=== PATIENT | female | born 1925 | race Caucasian/White ===

== ENCOUNTER 2017-09-09 20:41 | Emergency (ER) | payer MEDICARE ==
[~2017-09-09] VITALS: Ht 153.2 cm; Wt 53.5 kg
[~2017-09-09 20:41] MED LIST: ACTONEL150 MG PO; CEPHALEXIN500 MG PO; CITALOPRAM HBR20 MG PO; CYTOMEL5 MCG PO; DOXEPIN HCL50 MG PO; DOXEPIN PO; GABAPENTIN300 MG PO; HYDROCHLOROTHIA25 MG PO; HYDROCODONE PO; JANTOVEN3 MG PO; LACTULOSE20 GM/30 M PO; LEVOTHYROXINE50 MCG PO; LOSARTAN POTAS100 MG PO; LOSARTAN-HCTZ1 EAC1 PO; LOSARTAN-HCTZ1 EAC2 PO; LOVENOX40 MG/0.4 SC; MACROBID 100 M100 MG PO; NORCO 7.5-3251 EACH PO; PERCOCET 10-321 EACH PO; PROTONIX IV40 MG PO; TERBINAFINE HC250 MG PO; ZOLPIDEM TARTRA10 MG PO
[2017-09-09] MEDS ORDERED: HYDROCODONE/APAP 10MG-325MG TAB PO ONE (20:45)
[2017-09-09 21:52] VITALS: BP 159/87
--- NOTE | 2017-09-09 22:16 | Diagnostic Imaging Report ---
EXAM: CHEST 2 VIEWS, PA and lateral DATE: 09/09/2017 8:44 PM Time stamp on exam: 2055 hours INDICATION: Right side pain from shoulder to back COMPARISON: None FINDINGS: LINES/TUBES: None LUNGS: No consolidations or edema. PLEURA: No effusions or pneumothorax. HEART AND MEDIASTINUM: The heart is within normal size limits. Tortuous and likely ectatic thoracic aorta. BONES AND SOFT TISSUES: No acute findings. IMPRESSION: Prominent thoracic aorta, likely due to tortuosity and ectasia. Signed by: Dr. Lula Pierre M.D. on 09/09/2017 10:13 PM
--- NOTE | 2017-09-09 22:18 | Diagnostic Imaging Report ---
EXAM: CERVICAL SPINE 4 OR 5 VIEWS, AP, lateral, bilateral obliques and open mouth odontoid DATE: 09/09/2017 8:44 PM Time stamp on exam: 2132 hours INDICATION: Right-sided pain from shoulder to back COMPARISON: None FINDINGS: BONES: On the lateral view, the cervical spine is visualized from the skull base to mid C7. Grade 1 anterolisthesis of C4 with respect to C5.. The alignment is within normal limits. No displaced fractures. No lytic or blastic lesions. DISCS: Degenerative disc predominantly C5-C6 and C6/C7. JOINTS: Multilevel facet arthropathy, predominantly C5/C6 and C6/C7. SOFT TISSUES: Unremarkable IMPRESSION: Moderate to advanced degenerative changes of the lower cervical spine. Signed by: Dr. Lula Pierre M.D. on 09/09/2017 10:14 PM
--- NOTE | 2017-09-09 22:58 | Diagnostic Imaging Report ---
History: Neck pain and back pain. Comparison studies: X-ray cervical spine from 09/09/2017. Technique: Axial images were obtained through the cervical region.. Coronal and sagittal images reconstructed from the axial data.. Intravenous contrast: None Findings: Fractures: None. Soft tissue injuries: None. Atlantoaxial articulation: Intact. Alignment: Normal lordosis. No scoliosis. 2 mm grade 1 anterolisthesis at C4-C5. Cervicomedullary junction: No abnormalities. The foramen magnum is patent. Soft tissues: No abnormalities. Vertebrae: No fractures, infection or neoplasm. Degenerative changes: Moderate degenerative changes at the anterior atlantodental joint. C3-C4: Mild right and moderate left foraminal stenosis due to facet and uncovertebral arthrosis. C4-C5: Mild bilateral foraminal stenosis due to facet and uncovertebral arthrosis. C5-C6: Severe degenerative disc disease with near complete loss of intervertebral disc space, endplate sclerosis, anterior vertebral osteophyte and vacuum phenomenon. Posterior disc osteophyte complex without significant canal stenosis. Mild right and moderate left foraminal stenosis due to facet and uncovertebral arthrosis. C6-C7: Moderate degenerative disc disease with endplate sclerosis and vacuum phenomenon. Mild left foraminal stenosis due to facet and uncovertebral arthrosis. C7-T1: Mild to moderate degenerative disc disease with endplate sclerosis. IMPRESSION: 1. No acute cervical spine fracture. Grade 1 anterolisthesis at C4-C5 secondary to degenerative changes. 2. Ligament, spinal cord and or vascular abnormalities cannot be excluded on the basis of this examination. 3. Cervical spondylosis as detailed above. Signed by: Dr. Carmen Michel M.D. on 09/09/2017 10:54 PM
--- NOTE | 2017-09-09 23:04 | Diagnostic Imaging Report ---
History: Back pain, no known history of trauma. Comparison studies: None Technique: Axial were obtained without IV contrast through the thoracic region. Coronal and sagittal images reconstructed from the axial data. Intravenous contrast: None Findings: Alignment: Exaggeration of thoracic kyphosis may be positional or due to muscle spasm. No scoliosis. Soft tissues: Incidental 5 mm hypodense nodule in left renal parenchyma. Atherosclerotic calcification of the abdominal aorta.. Paraspinal muscles: Unremarkable Spinal cord: Can not be evaluated. Vertebrae: No fractures, infection or neoplasm. Degenerative changes: Mild multilevel degenerative disc disease. No significant canal or foraminal stenosis. IMPRESSION: 1. No acute thoracic spine abnormality. 2. Exaggeration of thoracic kyphosis may be positional or due to muscle spasm. 3. Ligament, spinal cord and or vascular abnormalities cannot be excluded on the basis of this examination. Signed by: Dr. Carmen Michel M.D. on 09/09/2017 11:00 PM
== END 2017-09-09 23:28 | disposition home or self-care (01) ==
LOC: ER 20:41
DX: M54.2 Cervicalgia (principal); S16.1XXA Strain of muscle, fascia and tendon at neck level, initial encounter; M54.6 Pain in thoracic spine; M54.14 Radiculopathy, thoracic region; I10 Essential (primary) hypertension; E03.9 Hypothyroidism, unspecified
CPT/HCPCS: 71020; 72050; 72125; 72128; 93005; 99283